=== PATIENT | female | born 2000 | race Two or more races ===

== ENCOUNTER 2025-03-12 06:13 | Inpatient (IN) | payer OTHER ==
[~2025-03-12] VITALS: Ht 157.5 cm; Wt 3.6 kg
[2025-03-12 05:56] VITALS: BP 116/73
[2025-03-12] MEDS ORDERED: PRENATAL TABLE1 EAC4 (06:20)
[2025-03-12] MEDS ORDERED: VALTREX1000 MG (06:21)
[2025-03-12] MEDS ORDERED: IRON236 MG (06:21)
[2025-03-12] MEDS ORDERED: METOCLOPRAMIDE H5 MG (06:21)
[2025-03-12] MEDS ORDERED: RINGERS SOLUTION,LACTATED 1,000 ML IV SCH (06:30)
[2025-03-12 06:39] LABS: URINE APPEARANCE Clear; URINE BILIRRUBIN Negative (NEGATIVE); URINE BLOOD Negative; URINE COLOR Yellow; URINE GLUCOSE Negative (NEGATIVE); URINE KETONE Negative (NEGATIVE); URINE LEUKOCYTE Negative; URINE NITRATE Negative; URINE PROTEIN Negative (NEGATIVE); URINE UROBILINOGEN 0.2 E.U./dl
[2025-03-12 06:41] LABS: URINE BACTERIA 14.6 uL (0.0-1933); URINE EPITHELIAL CELLS 4.5 uL (0.0-38.8)
[2025-03-12 06:44] LABS: HEMOGLOBIN 13.2 g/dL (12.0-15.00); MEAN CELL VOLUME 89.4 fL (80.00-100.00); MEAN CORPUSCULAR HEMOGLOBIN 30.2 pg (27.00-32.0); MEAN CORPUSCULAR HGB CONC 33.8 g/dl (32.0-36.0); PLATELET COUNT 105 K/uL (150-450); RED BLOOD COUNT 4.36 M/uL (4.00-6.00); RED CELL DISTRIBUTION WIDTH 17.1 % (11.5-14.5)
[2025-03-12 06:54] LABS: URINE WBC 0.4 uL (0.0-23.2)
[2025-03-12 07:09] LABS: INR < 0.93; PARTIAL THROMBOPLASTIN TIME 27.8 SECONDS (22.0-34.0); PROTHROMBIN TIME 10.1 SECONDS (9.0-11.5)
[2025-03-12 07:18] VITALS: BP 101/59
[2025-03-12 07:28] LABS: ALBUMIN 2.6 gm/dL (3.4-5.0); BILIRUBIN TOTAL 0.36 mg/dL (0.3-1.2); CALCIUM 9.1 mg/dL (8.5-10.1); CREATININE SERUM 0.77 mg/dL (0.55-1.02); GFR 91.34; GLOBULINA 3.5 G/DL (2.4-3.5); POTASSIUM 3.81 mEq/L (3.5-5.1); TOTAL PROTEIN 6.1 gm/dL (6.4-8.2)
[2025-03-12] MEDS ORDERED: MISOPROSTOL 25 MCG TABLET ONE (07:44)
[2025-03-12] MEDS ORDERED: MISOPROSTOL 25 MCG TABLET VAG ONE (09:15)
[2025-03-12 11:00] VITALS: BP 106/63
[2025-03-12] MEDS ORDERED: OXYTOCIN 500 ML IV SCH (12:15)
[2025-03-12 15:22] VITALS: BP 107/58
[2025-03-12] MEDS ORDERED: MORPHINE SULFATE 4 MG/ML VIAL IV ONE ×2 (16:45→23:35)
[2025-03-12 20:00] VITALS: BP 118/70
[2025-03-12] MEDS ORDERED: ERYTHROMYCIN BASE OPHT 1GM EACH TUBE OP ONE (20:40)
[2025-03-12] MEDS ORDERED: OXYTOCIN 10 UNITS/ML VIAL ONE (20:40)
[2025-03-12] MEDS ORDERED: CEFAZOLIN SODIUM 1,000 MG VIAL ONE (21:00)
[2025-03-12] MEDS ORDERED: CHLORHEXIDINE GLUCONATE 120 ML BOTTLE TOP ONE (21:52)
[2025-03-12] MEDS ORDERED: TRIAMCINOLONE ACETONIDE 40 MG/ML VIAL ONE (21:55)
[2025-03-12] MEDS ORDERED: KETOROLAC TROMETHAMINE 60 MG VIAL IM ONE (22:15)
[2025-03-13] MEDS ORDERED: MORPHINE SULFATE 4 MG/ML VIAL IV ONE (00:05)
[2025-03-13] MEDS ORDERED: ACETAMINOPHEN 325 MG TABLET PO SCH (06:00)
[2025-03-13] MEDS ORDERED: OxyCODONE HCL 5 MG TABLET (ROXICODONE) PO SCH (07:00)
[2025-03-13] MEDS ORDERED: DOCUSATE SODIUM 100MG CAP PO SCH (09:00)
[2025-03-13] MEDS ORDERED: SIMETHICONE 125 MG CAPSULE PO SCH (09:00)
[2025-03-13 23:28] LABS: HEMATOCRIT 38.7 % (36.0-45.00); HEMOGLOBIN 12.8 g/dL (12.0-15.00); MEAN CELL VOLUME 89.3 fL (80.00-100.00); MEAN CORPUSCULAR HEMOGLOBIN 29.5 pg (27.00-32.0); MEAN CORPUSCULAR HGB CONC 33.1 g/dl (32.0-36.0); RED BLOOD COUNT 4.33 M/uL (4.00-6.00); RED CELL DISTRIBUTION WIDTH 17.5 % (11.5-14.5)
[2025-03-14] VITALS: BP 104/62
[2025-03-14 07:27] LABS: PLATELET COUNT 109 K/uL (150-450)
[2025-03-14 08:54] VITALS: BP 111/70
[2025-03-14] MEDS ORDERED: MORPHINE SULFATE 4 MG/ML VIAL IV SCH (09:00)
[2025-03-14] MEDS ORDERED: ACETAMINOPHEN 325 MG TABLET PO ONE (10:31)
[2025-03-14] MEDS ORDERED: DOCUSATE SODIUM 100MG CAP PO ONE (10:31)
[2025-03-14] MEDS ORDERED: SIMETHICONE 125 MG CAPSULE PO ONE (10:31)
== END 2025-03-14 18:12 | disposition home or self-care (01) | DRG 788 ==
LOC: LDR 06:13 → OB/GYN 06:13 → O/R 21:03 → OB/GYN 22:25
PROVIDERS: ADMIT Specialist; ATTEND Specialist
PROC: 4A1HXCZ Monitoring of Products of Conception, Cardiac Rate, External Approach (ICD-10-PCS; 2025-03-12)
PROC: 10D00Z1 Extraction of Products of Conception, Low, Open Approach (ICD-10-PCS; principal; 2025-03-12 21:45)
DX: O82 Encounter for cesarean delivery without indication (principal); O62.1 Secondary uterine inertia; Z3A.39 39 weeks gestation of pregnancy; Z37.0 Single live birth